=== PATIENT | male | born 1960 | race Caucasian/White ===

== ENCOUNTER → 2023-07-02 14:55 | Outpatient (REF) | payer OTHER, SELFPAY | LOC: DHCBC MAIN 14:55 | PROVIDERS: ATTENDING PHYSICIAN Internal Medicine Cardiovascular Disease; FAMILY PHYSICIAN Family Medicine | DX: I35.0 Nonrheumatic aortic (valve) stenosis (principal) | CPT/HCPCS: 93306 ==

== ENCOUNTER 2023-10-14 02:02 | Inpatient (IN) | payer OTHER, SELFPAY ==
[2023-10-13] VITALS (9 sets, daily range): BP systolic 71–167; BP diastolic 78–154; BMI 26.7
[2023-10-13 18:09] LABS: % Basophils 0.5 % (0-2); % Eosinophils 1.8 % (0-6); % Immature Granulocytes 0.3 % (0-0.5); % Lymphocytes 42.9 % (20.5-51.1); % Monocytes 6.3 % (1.7-9.3); % Neutrophils 48.2 % (42.2-75.2); Absolute Basophils 0.1 10^3/uL (0-0.2); Absolute Eosinophils 0.2 10^3/uL (0-0.7); Absolute Lymphocytes 4.1 10^3/uL (1.2-3.4); Absolute Monocytes 0.6 10^3/uL (0.1-0.6); Absolute Neutrophils 4.6 10^3/uL (1.4-6.5); Hematocrit 39.3 % (39.0-52.0); Hemoglobin 13.8 g/dL (13.0-18.0); Mean Corp Hgb Conc. 35.1 g/dL (33.0-37.0); Mean Corpuscular Volume 88.3 fL (80.0-94.0); Nucleated Red Blood Cells % 0 % (-); Platelet Count 249 10^3/uL (130-400); Red Blood Cell Count 4.45 10^6/uL (4.70-6.10); Red Cell Dist. Width 12.6 % (11.5-14.5); White Blood Cell Count 9.6 10^3/uL (4.8-10.8)
[2023-10-13 18:26] LABS: ALT (SGPT) 21 U/L (0-50); AST (SGOT) 27 U/L (17-59); Albumin 4.4 g/dl (3.5-5.0); Alkaline Phosphatase 83 U/L (38-126); Blood Urea Nitrogen 18 mg/dl (9-20); Calcium 9.1 mg/dl (8.4-10.2); Carbon Dioxide 26 mmol/L (22-30); Chloride 106 mmol/L (98-107); Estimated Creatinine Clearance 92 ml/min; Glucose 101 mg/dl (70-99); Potassium 3.8 mmol/L (3.5-5.1); Sodium 138 mmol/L (135-145); Total Bilirubin 0.8 mg/dl (0.2-1.3); Total Protein 6.8 g/dl (6.3-8.2); eGFR > 60.00
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
[2023-10-13] MEDS: MORPHINE SULFATE 4 MG IV ×2 (22:29→23:27)
[2023-10-14] VITALS (16 sets, daily range): BP systolic 105–132; BP diastolic 65–82; BMI 25.4
[2023-10-14] MEDS: DILAUDID 0.5 MG IV ×2 (02:56→06:42)
[2023-10-14] MEDS: DILAUDID 0.25 MG IV (03:56)
[2023-10-14 05:47] LABS: Hematocrit 37.8 % (39.0-52.0); Hemoglobin 13.2 g/dL (13.0-18.0); Mean Corp Hgb Conc. 34.9 g/dL (33.0-37.0); Mean Corpuscular Hgb 31.4 pg (27.0-31.0); Mean Platelet Volume 8.1 fL (7.4-10.4); Platelet Count 207 10^3/uL (130-400); Red Cell Dist. Width 12.7 % (11.5-14.5); White Blood Cell Count 8.3 10^3/uL (4.8-10.8)
[2023-10-14 06:08] LABS: Blood Urea Nitrogen 16 mg/dl (9-20); Calcium 8.7 mg/dl (8.4-10.2); Carbon Dioxide 25 mmol/L (22-30); Chloride 107 mmol/L (98-107); Estimated Creatinine Clearance 104 ml/min; Glucose 109 mg/dl (70-99); Potassium 3.9 mmol/L (3.5-5.1); Sodium 138 mmol/L (135-145); eGFR > 60.00
--- NOTE | 2023-10-14 06:41 | PTCARENOTE ---
Admitted pt overnight Right CT in place, connected to wall suction, -20, no air leaks, no crepitus, dressing cdi. Drained 50cc yellow straw color overnight. c/o 10/10 pain at site overnight. 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
for adjustment of PRN doses d/t pt pain not being well controlled. Dilaudid is now Q3H, will see how this helps him. Remains on 3LNC. bedrest, call [facility] in reach.
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
[2023-10-14] MEDS: NORVASC 5 MG PO (11:29)
[2023-10-14] MEDS: COZAAR 50 MG PO (11:29)
--- NOTE | 2023-10-14 13:20 | W.PN.HOSP.TC ---
Today's Communication/Plan
-
Monitor vital signs see plan
Pain control
Chest tube management per pulmonary
Repeat chest x-ray later today
Assessment / Plan
Assessment / Plan
General: Comfortable and Conversant
HEENT: NormoCephalic, Anicteric, Moist mucous membranes, PERRLA
Respiratory: Clear and Chest Tube (right side chest ); No Wheezes
Cardiac: S1/S2, Regular Rhythm and Murmur (3/6 systolic)
GI: Soft, Non Tender, Non Distended, Normal Bowel Sounds
Musculoskeletal: No Edema
Neuro: AO x 3, No Motor Deficits, Nonfocal/grossly intact
Psych: Calm
Traumatic right-sided pneumothorax/fractures of seventh, eighth, ninth ribs
currently on 3L for comfort; wean o2 as tolerated
-Status post chest tube placement with CT confirmation
Continue with chest tube, chest tube management per Pulmonary
Pulmonary following
Admission Chest x-ray with ribs/PA chest: Large right-sided pneumothorax including inferior air-fluid level compatible with component of hydropneumothorax no evidence of tension pneumothorax or mediastinal shift.
Fractures of the right seventh, eighth and ninth ribs
repeat CXR
CT chest ,abdomen, pelvis
Since earlier radiographs, interval insertion of right-sided chest tube. Small residual pneumothorax.
Bands of atelectasis within the right lung. Patchy parenchymal disease within the right upper lobe, which is likely reexpansion edema.
Small amount of subcutaneous emphysema along the right lateral lower chest and upper abdominal wall.
Slightly displaced fracture of the right posterolateral ninth rib. By CT, no other fractures are identified.
Dense calcification of the aortic valve in this patient with known aortic stenosis.
Splenic size is in the upper range of normal. No evidence for hepatic or splenic injury.
Bony degenerative changes .
#HTN�benign
-Continue amlodipine 5 mg and losartan 50 mg
#Moderate�severe aortic stenosis
Follows with Dr. murillo
2D echo 07/02/2023:
EF 65-70%
Moderate to severe aortic stenosis
Mild aortic regurg
No change from October 2022
DVT prophylaxis
SCDs
Full code
Anticipated Discharge: Within 24 hours
Subjective/Interval History
-
Date of Service: October 14, 2023
has some pain
Objective Data
-
Labs:
Laboratory Results
10/14/23
05:30
WBC 8.3
Hgb 13.2
Hct 37.8 L
Plt Count 207
Sodium 138
Potassium 3.9
Chloride 107
Carbon Dioxide 25
BUN 16
Creatinine 0.8
Glucose 109 H
Calcium 8.7
Vital Signs:
Vital Signs
Temp Pulse Resp BP Pulse Ox
97.9 F 65 11 132/71 98
10/14/23 11:02 10/14/23 11:29 10/14/23 06:00 10/14/23 11:29 10/14/23 09:58
I&O
10/13/23 10/14/23 10/15/23
06:59 06:59 06:59
Output Total 650 / 650
Balance -650 / -650
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
--- NOTE | 2023-10-14 16:59 | PN.IRAD.UPD ---
Update Note - [facility]
- -
RIGHT chest tube removal. Vaseline gauze, new, dry, clean dressing placed over site. Patient tolerated procedure well
[2023-10-14] MEDS: LIDOCAINE 4% PATCH 1 PATCH TOPICAL (17:53)
--- NOTE | 2023-10-14 18:23 | PTCARENOTE ---
Pt sent to [facility] for removal of chest tube. Upon return on RA SPO2 92% or greater, reports taking a deep breath is easier. pt reports minimal pain, Lidocaine patch ordered and applied, see MAR. Assessment, care and VS as charted.
[2023-10-15] VITALS: BP 105/68
[2023-10-15 02:00] VITALS: BP 103/60
[2023-10-15 03:42] VITALS: BMI 25.4
[2023-10-15 04:00] VITALS: BP 104/63
[2023-10-15 05:37] LABS: % Basophils 0.4 % (0-2); % Eosinophils 1.5 % (0-6); % Immature Granulocytes 0.4 % (0-0.5); % Lymphocytes 40.1 % (20.5-51.1); % Monocytes 6.3 % (1.7-9.3); % Neutrophils 51.3 % (42.2-75.2); Absolute Eosinophils 0.2 10^3/uL (0-0.7); Absolute Lymphocytes 3.9 10^3/uL (1.2-3.4); Absolute Monocytes 0.6 10^3/uL (0.1-0.6); Hematocrit 37.1 % (39.0-52.0); Hemoglobin 12.9 g/dL (13.0-18.0); Mean Corp Hgb Conc. 34.8 g/dL (33.0-37.0); Mean Corpuscular Hgb 31.5 pg (27.0-31.0); Mean Corpuscular Volume 90.7 fL (80.0-94.0); Mean Platelet Volume 8.2 fL (7.4-10.4); Nucleated Red Blood Cells % 0 % (-); Platelet Count 208 10^3/uL (130-400); Red Blood Cell Count 4.09 10^6/uL (4.70-6.10); Red Cell Dist. Width 12.8 % (11.5-14.5); White Blood Cell Count 9.8 10^3/uL (4.8-10.8)
[2023-10-15 05:52] LABS: Blood Urea Nitrogen 20 mg/dl (9-20); Carbon Dioxide 28 mmol/L (22-30); Chloride 105 mmol/L (98-107); Estimated Creatinine Clearance 92 ml/min; Glucose 104 mg/dl (70-99); Potassium 4.3 mmol/L (3.5-5.1); Sodium 137 mmol/L (135-145); eGFR > 60.00
[2023-10-15 06:00] VITALS: BP 110/69
[2023-10-15 08:00] VITALS: BP 130/80
[2023-10-15] MEDS: LIDOCAINE 4% PATCH 1 PATCH TOPICAL (08:01)
[2023-10-15 10:00] VITALS: BP 121/77
--- NOTE | 2023-10-15 10:14 | W.PN.PUL3 ---
Today's Communication / Plan
-
DC planning
outpx pulmonary follow up recommended.
will sign off
Assessment
-
Posttraumatic large right-sided pneumothorax/symptomatic
Chest x-ray reviewed: Large right pneumothorax noted.
Status post chest tube placement 10/13/2023
Chest tube removed
Right rib fracture
Conditions present prior admission:
Hypertension
Moderate to severe aortic stenosis
Echocardiogram 06/2023: Normal ejection fraction. Moderate to severe .
Assessment and plan:.
Tolerated chest tube placement 10/13/2023
Chest x-ray 10/14/2023: Showed right chest tube in adequate position. No pneumothorax. Low lung volumes
Chest tube DCd on10/14/2023
CXR 10/15/2023 reviewed, no acute abnormalities.
No pneumothorax
-
Continue analgesia for rib fracture
-
Parenchymal lung abnormality on the right lung atelectasis/cannot rule out lung contusion component.
Recommend repeating CT chest in the outpatient setting in 3 months.
Information will be left in the chart, pt aware.
-
ok to dc from pulmonary perspective.
Will sign off

Reviewed imaging:
CT chest abdomen pelvis 10/13/2023:
Status post chest tube placement. Small residual right pneumothorax.
Patchy parenchymal disease in the right upper lobe likely reexpansion pulmonary edema
Small amount of subcutaneous emphysema around the right lateral lower chest and abdomen.
Slightly displaced fracture on the right posterolateral ninth rib.
Dense calcifications of aortic valve
No evidence for intra-abdominal solid organ injury.
Subjective Data
-
Date of Service:
Date of Service: October 15, 2023
Chief Complaint: Pulmonary Follow Up (Traumatic pneumothorax)
Subjective:
No new complaints.
Stable overnight.
Review of Systems
Cardiopulmonary: Dyspnea (n) and Dyspnea on Exertion (n)
GI: Abdominal Pain (n)
Objective Data
Data Reviewed
Vital Signs / I&O / Oxygen:
Vital Signs
Temp Pulse Resp BP Pulse Ox
98.2 F 49 14 110/69 92
10/15/23 07:33 10/15/23 06:00 10/15/23 06:00 10/15/23 06:00 10/15/23 08:11
Intake and Output
10/14/23 10/15/23 10/16/23
06:59 06:59 06:59
Intake Total 720 / 720
Output Total 650 / 650
Balance 70 / 70
SaO2 92
Nasal Cannula flow liters per 3
minute
Physical Exam
General: Comfortable
HEENT: Normocephalic
Cardiovascular: S1-S2
Respiratory: Clear and Non-Labored Respirations
GI: Soft and Non Distended
Neurology: Awake, Alert, Oriented and AO x 3
Skin: Warm
Labs/Micro/Reports
Lab Data
10/15/23 05:10
10/15/23 05:10
--- NOTE | 2023-10-15 11:08 | W.PN.HOSP.TC ---
Today's Communication/Plan
-
Monitor vital signs and see plan
Discharge today
time of discharge 36 minutes
Assessment / Plan
Assessment / Plan
General: Comfortable and Conversant
HEENT: NormoCephalic, Anicteric, Moist mucous membranes, PERRLA
Respiratory: Clear and Chest Tube (right side chest ); No Wheezes
Cardiac: S1/S2, Regular Rhythm and Murmur (3/6 systolic)
GI: Soft, Non Tender, Non Distended, Normal Bowel Sounds
Musculoskeletal: No Edema
Neuro: AO x 3, No Motor Deficits, Nonfocal/grossly intact
Psych: Calm
Traumatic right-sided pneumothorax/fractures of seventh, eighth, ninth ribs
Now on room air
-Status post chest tube placement with CT confirmation
Continue with chest tube, chest tube management per Pulmonary
Pulmonary following
Admission Chest x-ray with ribs/PA chest: Large right-sided pneumothorax including inferior air-fluid level compatible with component of hydropneumothorax no evidence of tension pneumothorax or mediastinal shift.
Fractures of the right seventh, eighth and ninth ribs
chest x-ray with improved findings, now chest tube DC'd. Discharge home today with pulmonary follow-up
CT chest ,abdomen, pelvis
Since earlier radiographs, interval insertion of right-sided chest tube. Small residual pneumothorax.
Bands of atelectasis within the right lung. Patchy parenchymal disease within the right upper lobe, which is likely reexpansion edema.
Small amount of subcutaneous emphysema along the right lateral lower chest and upper abdominal wall.
Slightly displaced fracture of the right posterolateral ninth rib. By CT, no other fractures are identified.
Dense calcification of the aortic valve in this patient with known aortic stenosis.
Splenic size is in the upper range of normal. No evidence for hepatic or splenic injury.
Bony degenerative changes .
#HTN�benign
-Continue amlodipine 5 mg and losartan 50 mg
#Moderate�severe aortic stenosis
Follows with Dr. murillo
2D echo 07/02/2023:
EF 65-70%
Moderate to severe aortic stenosis
Mild aortic regurg
No change from October 2022
DVT prophylaxis
SCDs
Full code
Anticipated Discharge: Today
Subjective/Interval History
-
Date of Service: October 15, 2023
Denies nausea
Objective Data
-
Labs:
Laboratory Results
10/15/23
05:10
WBC 9.8
Hgb 12.9 L
Hct 37.1 L
Plt Count 208
Sodium 137
Potassium 4.3
Chloride 105
Carbon Dioxide 28
BUN 20
Creatinine 0.9
Glucose 104 H
Calcium 9.0
Vital Signs:
Vital Signs
Temp Pulse Resp BP Pulse Ox
98.2 F 71 21 121/77 93
10/15/23 07:33 10/15/23 10:00 10/15/23 10:00 10/15/23 10:00 10/15/23 10:42
I&O
10/14/23 10/15/23 10/16/23
06:59 06:59 06:59
Intake Total 720 / 720
Output Total 650 / 650
Balance 70 / 70
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
[2023-10-15] MEDS: NORVASC 5 MG PO (11:46)
[2023-10-15] MEDS: COZAAR 50 MG PO (11:46)
--- NOTE | 2023-10-15 12:16 | PTCARENOTE ---
Pt for d/c home. IV and monitor equipment removed. Instructions and med list reviewed with pt. Ambulated off unit with family members.
[2023-10-15 19:10] LABS: Hepatitis C Antibody Negative (Negative)
== END 2023-10-15 12:17 | disposition home or self-care (01) | DRG 200 ==
LOC: IMU 02:02
PROVIDERS: Radiology Vascular & Interventional Radiology; ADMITTING PHYSICIAN Hospitalist; ATTENDING PHYSICIAN Internal Medicine; CONSULT PHYSICIAN Internal Medicine Critical Care Medicine; EMERGENCY PHYSICIAN Emergency Medicine; FAMILY PHYSICIAN Family Medicine
PROC: 0W9930Z Drainage of Right Pleural Cavity with Drainage Device, Percutaneous Approach (ICD-10-PCS; 2023-10-13)
DX: S27.0XXA Traumatic pneumothorax, initial encounter (principal); J98.11 Atelectasis; S22.41XA Multiple fractures of ribs, right side, initial encounter for closed fracture; T79.7XXA Traumatic subcutaneous emphysema, initial encounter; I10 Essential (primary) hypertension; I35.2 Nonrheumatic aortic (valve) stenosis with insufficiency; V89.2XXA Person injured in unspecified motor-vehicle accident, traffic, initial encounter; Y92.410 Unspecified street and highway as the place of occurrence of the external cause
CPT/HCPCS: 32557; 71045; 71260; 74177; 80048; 80053; 85025; 85027; 86803; 99152; 99291; C1729; C1769; Q9967

== ENCOUNTER → 2024-01-18 14:41 | Outpatient (REF) | payer OTHER, SELFPAY ==
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
== END ==
LOC: RCS 14:41
PROVIDERS: ATTENDING PHYSICIAN Student in an Organized Health Care Education/Training Program; FAMILY PHYSICIAN Family Medicine
DX: I34.0 Nonrheumatic mitral (valve) insufficiency (principal)
CPT/HCPCS: 93306

== ENCOUNTER → 2024-01-26 15:51 | Outpatient (REF) | payer OTHER, SELFPAY | LOC: RAD 15:51 | PROVIDERS: ATTENDING PHYSICIAN Nurse Practitioner Family; FAMILY PHYSICIAN Family Medicine | DX: R93.89 Abnormal findings on diagnostic imaging of other specified body structures (principal) | CPT/HCPCS: 71250 ==

== ENCOUNTER → 2025-01-31 14:35 | Outpatient (REF) | payer OTHER, SELFPAY | LOC: RCS 14:35 | PROVIDERS: ATTENDING PHYSICIAN Student in an Organized Health Care Education/Training Program; FAMILY PHYSICIAN Family Medicine | DX: I35.0 Nonrheumatic aortic (valve) stenosis (principal) | CPT/HCPCS: 93306 ==